=== PATIENT | male | born 1965 | race Caucasian/White ===

== ENCOUNTER → 2016-11-14 | Outpatient (CLI) | payer BC | LOC: MW.CHPM 08:12 | PROVIDERS: ATTEND Anesthesiology | DX: Z51.81 Encounter for therapeutic drug level monitoring (principal); Z79.891 Long term (current) use of opiate analgesic | CPT/HCPCS: 80305 ==

== ENCOUNTER → 2016-11-28 | Outpatient (CLI) | payer BC ==
--- NOTE | 2016-11-28 13:39 | CR ---
EXAMINATION: Lumbar spine HISTORY: Low back pain COMPARISON: Radiographs dated 09/05/2016 TECHNIQUE: 2 views FINDINGS: There is stable posterior fusion of L4-S1 bilaterally. Mild interbody osseous fusion noted . Marginal osteophytes are noted. No fracture or acute osseous abnormality. The SI joints are symmet deanna. IMPRESSION: Posterior effusion hardware noted from L4 to S1, grossly unchanged.
== END ==
LOC: MW.DI 09:09
PROVIDERS: ATTEND Neurological Surgery
DX: M54.5 Low back pain (principal); G03.8 Meningitis due to other specified causes
CPT/HCPCS: 72100; 72100-26

== ENCOUNTER → 2017-01-23 | Outpatient (CLI) | payer BC | LOC: MW.CHPM 07:59 | PROVIDERS: ATTEND Anesthesiology | DX: Z51.81 Encounter for therapeutic drug level monitoring (principal); Z79.891 Long term (current) use of opiate analgesic | CPT/HCPCS: 80305 ==

== ENCOUNTER 2017-03-14 10:38 | Day surgery (SDC) | payer BC ==
[~2017-03-14 10:38] MED LIST: Lactated Ringers 1,000 ML IV SCH; Lidocaine 2% 5 ML SDV ONE; Propofol 200 MG/20 ML SDV ONE; Sodium Chloride 0.9% 10 ML Syringe FLUSH PRN; Sodium Chloride 0.9% 2.5 ML Syringe FLUSH PRN
--- NOTE | 2017-03-14 11:43 | PCM.PREANE ---
Preanesthetic Assessment - Anesthesia/Transfusion/Family Hx Anesthesia History: Prior Anesthesia Without Reaction Family History of Anesthesia Reaction: No Transfusion History: No Prior Transfusion(s) - Review of Systems General: No Symptoms Pulmonary: No Symptoms Cardiovascular: No Symptoms Gastrointestinal: No symptoms Neurological: No Symptoms Other: Reports: None - Physical Assessment NPO Status Date: 03/13/17 O2 Sat by Pulse Oximetry: 97 Respiratory Rate: 16 Vital Signs: Last Vital Signs Temp 36.4 C 03/14/17 10:47 Pulse 93 03/14/17 10:47 Resp 16 03/14/17 10:47 BP 109/71 03/14/17 10:47 Pulse Ox 97 03/14/17 10:47 Height: 1.73 m Weight: 109.769 kg ASA Class: 2 Mental Status: Alert & Oriented x3 Airway Class: Mallampati = 1 Dentition: Reports: Normal Dentition ROM/Head Extension: Full Lungs: Clear to auscultation, Normal respiratory effort Cardiovascular: Regular Rate, Regular Rhythm - Allergies Allergies/Adverse Reactions: Allergies Allergy/AdvReac Type Severity Reaction Status Date / Time gabapentin Allergy Headache Verified 03/09/17 09:56 Penicillins Allergy Cannot Verified 03/09/17 09:56 Remember - Anesthesia Plan Pre-Op Medication Ordered: None - Acknowledgements Anesthesia Type Planned: MAC Pt an Appropriate Candidate for the Planned Anesthesia: Yes Alternatives and Risks of Anesthesia Discussed w Pt/Guardian: Yes Pt/Guardian Understands and Agrees with Anesthesia Plan: Yes PreAnesthesia Questionnaire Cardiovascular History: Reports: High Cholesterol, Hypertension Gastrointestinal History: Reports: None Musculoskeletal History: Reports: Arthritis, Fracture, Gout Endocrine/Metabolic History: Reports: Diabetes, Type II, Hypothyroidism, Obesity /BMI 30+ - Past Surgical History Head Surgeries/Procedures: Reports: None GI Surgical History: Reports: Hernia, Inguinal Musculoskeletal Surgical History: Reports: Other (See Below) Other Musculoskeletal Surgeries/Procedures:: hx repair of fx ankle and later had hardware removal - SUBSTANCE USE Smoking Status *Q: Never Smoker Recreational Drug Use History: No - HOME MEDS Home Medications: Home Meds Dexamethasone 3 tab PO ASDIRECTED PRN 03/09/17 [History] Levothyroxine Sodium [Synthroid] 125 mcg PO DAILY 03/09/17 [History] Sildenafil [Revatio] 20 mg PO ASDIRECTED PRN 03/09/17 [History] metFORMIN HCl [Metformin HCl] 1,000 mg PO DAILY 03/09/17 [History] oxyCODONE HCl/Acetaminophen [Percocet 10-325 mg Tablet] 1 tab PO ASDIRECTED PRN 03/09/17 [History] Lisinopril 5 mg PO DAILY 03/14/17 [History] Rosuvastatin [Crestor] 10 mg PO DAILY 03/14/17 [History] clomiPHENE Citrate [Serophene] 50 mg PO DAILY 03/14/17 [History] - CURRENT (IN HOUSE) MEDS Current Meds: Current Medications Lactated Ringer's (Ringers, Lactated) 1,000 mls @ 125 mls/hr IV ASDIRECTED HANK Last Admin: 03/14/17 11:05 Dose: 125 mls/hr Sodium Chloride (Saline Flush) 10 ml FLUSH ASDIRECTED PRN PRN Reason: Keep Vein Open Sodium Chloride (Saline Flush) 2.5 ml FLUSH ASDIRECTED PRN PRN Reason: Keep Vein Open Discontinued Medications Lidocaine (Xylocaine-Mpf 2%) Confirm Administered Dose 5 ml .ROUTE .STK-MED ONE Stop: 03/14/17 08:01 Propofol (Diprivan 20 Ml) Confirm Administered Dose 400 mg .ROUTE .STK-MED ONE Stop: 03/14/17 08:01
--- NOTE | 2017-03-14 13:43 | PCM.OPNOTE ---
- General Post-Op/Procedure Note Date of Surgery/Procedure: 03/14/17 Operative Procedure(s): Colonoscopy Findings: Normal colonoscopy Pre Op Diagnosis: Screening colonoscopy Post-Op Diagnosis: same Anesthesia Technique: MAC Primary Surgeon: Jenn Godinez Condition: Good
[2017-03-14 14:10] VITALS: BP 128/78
--- NOTE | 2017-03-14 14:23 | PCM.POSTAN ---
POST ANESTHESIA ASSESSMENT - MENTAL STATUS Mental Status: alert, oriented - RESPIRATORY Respiratory Status: respiratory rate WNL, airway patent, O2 saturation stable - CARDIOVASCULAR CV Status: pulse rate WNL, blood pressure stable - GASTROINTESTINAL GI Status: no symptoms - POST OP HYDRATION Hydration Status: adequate & stable
--- NOTE | 2017-03-14 14:23 | PCM48HPAN ---
Post Anesthesia Note - EVALUATION WITHIN 48HRS OF ANESTHETIC Vital Signs in Normal Range: Yes Patient Participated in Evaluation: Yes Respiratory Function Stable: Yes Airway Patent: Yes Cardiovascular Function Stable: Yes Hydration Status Stable: Yes Pain Control Satisfactory: Yes Nausea and Vomiting Control Satisfactory: Yes Mental Status Recovered: Yes
--- NOTE | 2017-03-15 01:30 | OR ---
SURGEON: JAMES QUIROZ MD DATE OF PROCEDURE: 03/14/2017 PREOPERATIVE DIAGNOSIS: Screening colonoscopy. POSTOPERATIVE DIAGNOSIS: Screening colonoscopy. PROCEDURE PERFORMED: Screening colonoscopy. ANESTHESIA: MAC. INSTRUMENT USED: Olympus colonoscope. EXTENT OF EXAM: To the cecum. PREPARATION: Good. LIMITATIONS: None. INDICATION FOR EXAMINATION: The patient is a 52-year-old male, who presents for first time screening colonoscopy. We discussed the procedure, expected perioperative course, and risks including bleeding, infection, or possible damage to surrounding structures, including perforation. The patient verbalized understanding and wishes to proceed. PROCEDURE IN DETAIL: The patient was brought to the endoscopy suite and placed in left lateral decubitus position. A time-out was completed verifying the patient's name, age, date of , allergies, and procedure to be performed. Monitored anesthesia care was induced and continuous oxygen was provided via nasal cannula throughout the procedure. After adequate sedation was achieved, a digital rectal exam was performed. This exam was within normal limits. A well lubricated colonoscope was inserted into the rectum and advanced under direct visualization to the level of the cecum. The cecum was identified by both visual and anatomic landmarks. A photograph was taken of the cecal cap, but I was unable to retroflex the scope within the cecum. The scope was withdrawn while examining the color, texture, anatomy, and integrity of the mucosa from the cecum to the anal canal. This all appeared normal. The scope was then brought into the rectum and retroflexed to allow visualization of the anal canal opening. The patient had mild hemorrhoidal disease, but no other findings. The scope was then straightened out and removed from the patient. The cecum to anus time was 8 minutes. The patient tolerated the procedure well and was taken to the PACU in stable condition. ENDOSCOPIC DIAGNOSIS: Normal colonoscopy. RECOMMENDATIONS: Follow up in clinic in 10 years. NADIR / MAJO /[id number]
== END 2017-03-14 14:10 | disposition home or self-care (01) ==
LOC: MW.SDS 10:38
PROVIDERS: ATTEND Surgery
PROC: 0DJD8ZZ Inspection of Lower Intestinal Tract, Via Natural or Artificial Opening Endoscopic (ICD-10-PCS; principal; 2017-03-14)
DX: Z12.11 Encounter for screening for malignant neoplasm of colon (principal); K64.9 Unspecified hemorrhoids; E03.9 Hypothyroidism, unspecified; M10.9 Gout, unspecified; M51.36 Other intervertebral disc degeneration, lumbar region; N52.9 Male erectile dysfunction, unspecified; M96.1 Postlaminectomy syndrome, not elsewhere classified; E78.00 Pure hypercholesterolemia, unspecified; E29.1 Testicular hypofunction; M79.1 Myalgia; E66.9 Obesity, unspecified; I10 Essential (primary) hypertension; M19.90 Unspecified osteoarthritis, unspecified site; E11.9 Type 2 diabetes mellitus without complications; G89.4 Chronic pain syndrome; M47.814 Spondylosis without myelopathy or radiculopathy, thoracic region; Z88.0 Allergy status to penicillin; Z88.8 Allergy status to other drugs, medicaments and biological substances; Z79.891 Long term (current) use of opiate analgesic; Z79.84 Long term (current) use of oral hypoglycemic drugs; Z79.899 Other long term (current) drug therapy; Z98.890 Other specified postprocedural states; Z68.36 Body mass index [BMI] 36.0-36.9, adult
CPT/HCPCS: 45378; J7120; J2704

== ENCOUNTER 2017-10-29 08:03 | Observation (INO) | payer BC ==
[2017-10-29] MEDS ORDERED: Ondansetron 4 MG/2 ML SDV IVPUSH ONE (08:24)
[2017-10-29] MEDS ORDERED: Sodium Chloride 0.9% 10 ML Syringe FLUSH PRN (08:24)
[2017-10-29] MEDS ORDERED: Sodium Chloride 0.9% 2.5 ML Syringe FLUSH PRN (08:24)
--- NOTE | 2017-10-29 08:28 | EDM.PDOC ---
ED HPI GENERAL MEDICAL PROBLEM - General Chief Complaint: Gastrointestinal Problem Stated Complaint: vomitting Time Seen by Provider: 10/29/17 08:15 Source of Information: Reports: Patient History Limitations: Reports: No Limitations - History of Present Illness INITIAL COMMENTS - FREE TEXT/NARRATIVE: History of present illness: []Patient started having nonbloody diarrhea 3 days ago followed by vomiting and last night at 10:00 had abdominal pain. Denies any fevers or chills. He last ate at 9 PM and had ice cream. Review of systems: As per history of present illness and below otherwise all systems reviewed and negative. Past medical history: As per history of present illness and as reviewed below otherwise noncontributory. Surgical history: As per history of present illness and as reviewed below otherwise noncontributory. Social history: No reported history of drug or alcohol abuse. Family history: As per history of present illness and as reviewed below otherwise noncontributory. Physical exam: General: Well developed, well nourished in painful distress HEENT: Atraumatic, normocephalic, pupils reactive, negative for conjunctival pallor or scleral icterus, mucous membranes moist, throat clear, neck supple, nontender, trachea midline. Lungs: Clear to auscultation, breath sounds equal bilaterally, chest nontender. Heart: S1S2, regular, negative for clicks, rubs, or JVD. Abdomen: Soft, nondistended, diffuse tenderness with maximum tenderness is right lower quadrant with voluntary guarding and no rebound. Negative for masses or hepatosplenomegaly. Negative for costovertebral tenderness. Pelvis: Stable nontender. Genitourinary: Deferred. Rectal: Deferred. Extremities: Atraumatic, negative for cords or calf pain. Neurovascular unremarkable. Neuro: Awake, alert, oriented. Cranial nerves II through XII unremarkable. Cerebellum unremarkable. Motor and sensory unremarkable throughout. Exam nonfocal. Diagnostics: []Labs elevated white count with a shift, CT showing acute appendicitis without rupture Therapeutics: []IV fluids Dilaudid and Zofran given Impression: []Acute appendicitis Plan: []Admit Definitive disposition and diagnosis as appropriate pending reevaluation and review of above. right lower and upper quadrant Pain Score (Numeric/FACES): 10 - Related Data Allergies Allergy/AdvReac Type Severity Reaction Status Date / Time gabapentin Allergy Headache Verified 10/29/17 08:11 Penicillins Allergy Cannot Verified 10/29/17 08:11 Remember Home Meds: Home Meds Dexamethasone 3 tab PO ASDIRECTED PRN 03/09/17 [History] Levothyroxine Sodium [Synthroid] 125 mcg PO DAILY 03/09/17 [History] Sildenafil [Revatio] 20 mg PO ASDIRECTED PRN 03/09/17 [History] metFORMIN HCl [Metformin HCl] 1,000 mg PO DAILY 03/09/17 [History] Lisinopril 5 mg PO DAILY 03/14/17 [History] Rosuvastatin [Crestor] 10 mg PO DAILY 03/14/17 [History] clomiPHENE Citrate [Serophene] 50 mg PO DAILY 03/14/17 [History] Past Medical History HEENT History: Reports: None Cardiovascular History: Reports: High Cholesterol, Hypertension Respiratory History: Reports: None Gastrointestinal History: Reports: None Genitourinary History: Reports: None Musculoskeletal History: Reports: Arthritis, Fracture, Gout Neurological History: Reports: None Psychiatric History: Reports: None Endocrine/Metabolic History: Reports: Diabetes, Type II, Hypothyroidism, Obesity /BMI 30+ Hematologic History: Reports: None Immunologic History: Reports: None Oncologic (Cancer) History: Reports: None Dermatologic History: Reports: None - Past Surgical History Head Surgeries/Procedures: Reports: None HEENT Surgical History: Reports: None Cardiovascular Surgical History: Reports: None Respiratory Surgical History: Reports: None GI Surgical History: Reports: Hernia, Inguinal Male Surgical History: Reports: None Endocrine Surgical History: Reports: None Neurological Surgical History: Reports: None Musculoskeletal Surgical History: Reports: Other (See Below) Other Musculoskeletal Surgeries/Procedures:: hx repair of fx ankle and later had hardware removal Oncologic Surgical History: Reports: None Dermatological Surgical History: Reports: None Social & Family History - Family History Family Medical History: Noncontributory - Tobacco Use Smoking Status *Q: Never Smoker Second Hand Smoke Exposure: No - Caffeine Use Caffeine Use: Reports: None - Recreational Drug Use Recreational Drug Use: No ED ROS GENERAL - Review of Systems Review Of Systems: See Below (See history of present illness) ED EXAM, GI/ABD - Physical Exam Exam: See Below (See history of present illness) Course - Vital Signs Last Recorded V/S: Last Vital Signs Temp 96.6 F 10/29/17 08:12 Pulse 82 10/29/17 10:15 Resp 16 02/12/18 10:15 BP 137/77 10/29/17 10:15 Pulse Ox 97 10/29/17 10:15 - Orders/Labs/Meds Orders: Active Orders 24 hr Category Date Time Status NPO [Nothing Per Oral Diet] [DIET] Diet 10/29/17 Lunch Active UA W/MICROSCOPIC [URIN] Stat Lab 10/29/17 10:33 Ordered HYDROmorphone [Dilaudid] Med 10/29/17 08:24 Active 0.5 mg IVPUSH Q1H PRN Sodium Chloride 0.9% [Saline Flush] Med 10/29/17 08:24 Active 10 ml FLUSH ASDIRECTED PRN Sodium Chloride 0.9% [Saline Flush] Med 10/29/17 08:24 Active 2.5 ml FLUSH ASDIRECTED PRN Saline Lock Insert [OM.PC] Stat Oth 10/29/17 08:24 Ordered Medication Orders Hydromorphone HCl (Dilaudid) 0.5 mg IVPUSH Q1H PRN PRN Reason: Pain Last Admin: 10/29/17 08:55 Dose: 0.5 mg Admin: 10/29/17 08:34 Dose: 0.5 mg Sodium Chloride (Saline Flush) 10 ml FLUSH ASDIRECTED PRN PRN Reason: Keep Vein Open Last Admin: 10/29/17 08:35 Dose: 10 ml Sodium Chloride (Saline Flush) 2.5 ml FLUSH ASDIRECTED PRN PRN Reason: Keep Vein Open Last Admin: 10/29/17 08:35 Dose: 2.5 ml Labs: Laboratory Tests 10/29/17 10/29/17 Range/Units 08:22 08:22 WBC 15.39 H (4.0-11.0) K/uL RBC 5.19 (4.50-5.90) M/uL Hgb 15.2 (13.0-17.0) g/dL Hct 44.9 (38.0-50.0) % MCV 86.5 (80.0-98.0) fL MCH 29.3 (27.0-32.0) pg MCHC 33.9 (31.0-37.0) g/dL RDW Std Deviation 43.7 (28.0-62.0) fl RDW Coeff of Pina 14 (11.0-15.0) % Plt Count 228 (150-400) K/uL MPV 10.10 (7.40-12.00) fL Neut % (Auto) 81.2 H (48.0-80.0) % Lymph % (Auto) 10.6 L (16.0-40.0) % [place] % (Auto) 7.3 (0.0-15.0) % Eos % (Auto) 0.8 (0.0-7.0) % Baso % (Auto) 0.1 (0.0-1.5) % Neut # (Auto) 12.5 H (1.4-5.7) K/uL Lymph # (Auto) 1.6 (0.6-2.4) K/uL [place] # (Auto) 1.1 H (0.0-0.8) K/uL Eos # (Auto) 0.1 (0.0-0.7) K/uL Baso # (Auto) 0.0 (0.0-0.1) K/uL Nucleated RBC % 0.0 /100WBC Nucleated RBCs # 0 K/uL Sodium 139 (136-146) mmol/L Potassium 4.2 (3.5-5.1) mmol/L Chloride 106 (98-110) mmol/L Carbon Dioxide 19 L (21-31) mmol/L BUN 17 (6.0-23.0) mg/dL Creatinine 1.0 (0.6-1.5) mg/dL Est Cr Clr Drug Dosing 84.55 mL/min Estimated GFR (MDRD) > 60.0 ml/min Glucose 128 H (60-110) mg/dL Calcium 9.6 (8.8-10.8) mg/dL Total Bilirubin 0.7 (0.1-1.5) mg/dL AST 26 (5-40) IU/L ALT 39 (8-54) IU/L Alkaline Phosphatase 84 (40-150) Total Protein 7.4 (6.0-8.0) g/dL Albumin 4.5 (3.5-5.0) g/dL Globulin 2.9 (2.0-3.5) g/dL Albumin/Globulin Ratio 1.6 (1.3-2.8) Lipase 24 (7-80) U/L Meds: Medications Generic Name Dose Route Start Last Admin Trade Name Christianoq PRN Reason Stop Dose Admin Hydromorphone HCl 0.5 mg 10/29/17 08:24 10/29/17 08:55 Dilaudid IVPUSH 0.5 mg Q1H PRN Administration Pain Sodium Chloride 10 ml 10/29/17 08:24 10/29/17 08:35 Saline Flush FLUSH 10 ml ASDIRECTED PRN Administration Keep Vein Open Sodium Chloride 2.5 ml 10/29/17 08:24 10/29/17 08:35 Saline Flush FLUSH 2.5 ml ASDIRECTED PRN Administration Keep Vein Open Discontinued Medications Generic Name Dose Route Start Last Admin Trade Name Christianoq PRN Reason Stop Dose Admin Iopamidol 100 ml 10/29/17 09:49 10/29/17 10:01 Isovue Multipack-370 (76%) IVPUSH 10/29/17 09:50 100 ml ONETIME STA Administration Ondansetron HCl 4 mg 10/29/17 08:24 10/29/17 08:34 Zofran IVPUSH 10/29/17 08:25 4 mg ONETIME ONE Administration Departure - Departure Time of Disposition: 10:48 Disposition: Admitted As Inpatient 67 Condition: Good Clinical Impression: Acute appendicitis Qualifiers: Acute appendicitis type: unspecified acute appendicitis type Qualified Code(s) : K35.80 - Unspecified acute appendicitis - Discharge Information Referrals: Phoenix Wong MD [Primary Care Provider] - Forms: ED Department Discharge - My Orders Last 24 Hours: My Active Orders 10/29/17 08:24 HYDROmorphone [Dilaudid] 0.5 mg IVPUSH Q1H PRN Sodium Chloride 0.9% [Saline Flush] 10 ml FLUSH ASDIRECTED PRN Sodium Chloride 0.9% [Saline Flush] 2.5 ml FLUSH ASDIRECTED PRN Saline Lock Insert [OM.PC] Stat 10/29/17 10:33 UA W/MICROSCOPIC [URIN] Stat 10/29/17 Lunch NPO [Nothing Per Oral Diet] [DIET] - Assessment/Plan Last 24 Hours: My Active Orders 10/29/17 08:24 HYDROmorphone [Dilaudid] 0.5 mg IVPUSH Q1H PRN Sodium Chloride 0.9% [Saline Flush] 10 ml FLUSH ASDIRECTED PRN Sodium Chloride 0.9% [Saline Flush] 2.5 ml FLUSH ASDIRECTED PRN Saline Lock Insert [OM.PC] Stat 10/29/17 10:33 UA W/MICROSCOPIC [URIN] Stat 10/29/17 Lunch NPO [Nothing Per Oral Diet] [DIET]
[2017-10-29] MEDS: HYDROmorphone 1 MG/ML Syringe IVPUSH PRN ×3 (08:34→11:06)
[2017-10-29 09:22] LABS: CHLORIDE,CL 106 mmol/L (98-110); SODIUM,NA 139 mmol/L (136-146)
[2017-10-29] MEDS ORDERED: Iopamidol 755 MG/ML 500 ML Multipack Bottle IVPUSH STA (09:49)
--- NOTE | 2017-10-29 10:18 | CT ---
CT of the abdomen and pelvis with contrast. HISTORY: Pain TECHNIQUE: Axial CT images were obtained of the abdomen and pelvis following administration of 100 mL of Isovue-370 in the right arm without complication. Coronal and sagittal reconstructions obtained. FINDINGS: The lung bases are clear, no pleural effusion. Mild dependent atelectasis. Liver, spleen, adrenal gla nds, and pancreas appear normal. The gallbladder is normal. No bulky retroperitoneal lymphadenopathy or abdominal ascites. The kidneys enhance and function symmetrically without evidence of obstructive uropathy. The large and small bowel are normal in caliber without evidence of obstruction. The appendix is retr ocecal and enlarged with adjacent stranding. No periappendiceal fluid or free air. The urinary bladde r is normal. No bulky pelvic lymphadenopathy or significant free pelvic fluid. Small fat-containing u mbilical hernia is noted. Postsurgical changes noted within the lower lumbar spine no suspicious osseous abnormalities. IMPRESSION: 1. Acute appendicitis without evidence of a rupture.
[2017-10-29] MEDS ORDERED: cefOXitin 1 GM in Premix Bag 1 BAG IV ONE (10:44)
--- NOTE | 2017-10-29 11:00 | PCM.PREANE ---
Preanesthetic Assessment - Anesthesia/Transfusion/Family Hx Anesthesia History: Prior Anesthesia Without Reaction Transfusion History: No Prior Transfusion(s) - Review of Systems General: No Symptoms Pulmonary: No Symptoms Cardiovascular: No Symptoms Gastrointestinal: No Symptoms Neurological: No Symptoms Other: Reports: None - Physical Assessment NPO Status Date: 10/28/17 NPO Status Time: 21:00 O2 Sat by Pulse Oximetry: 97 Respiratory Rate: 16 Vital Signs: Last Vital Signs Temp 96.6 F 10/29/17 08:12 Pulse 82 10/29/17 10:15 Resp 16 10/29/17 10:15 BP 137/77 10/29/17 10:15 Pulse Ox 97 10/29/17 10:15 Height: 5 ft 8 in Weight: 101.2 kg ASA Class: 2E Mental Status: Alert & Oriented x3 Airway Class: Mallampati = 2 Dentition: Reports: Normal Dentition Thyro-Mental Finger Breadths: 3 Mouth Opening Finger Breadths: 3 ROM/Head Extension: Limited/Partial Lungs: Clear to Auscultation, Normal Respiratory Effort Cardiovascular: Regular Rate, Regular Rhythm - Lab Values: Laboratory Last Values WBC 15.39 K/uL (4.0-11.0) H 10/29/17 08:22 RBC 5.19 M/uL (4.50-5.90) 10/29/17 08:22 Hgb 15.2 g/dL (13.0-17.0) 10/29/17 08:22 Hct 44.9 % (38.0-50.0) 10/29/17 08:22 MCV 86.5 fL (80.0-98.0) 10/29/17 08:22 MCH 29.3 pg (27.0-32.0) 10/29/17 08:22 MCHC 33.9 g/dL (31.0-37.0) 10/29/17 08:22 RDW Std Deviation 43.7 fl (28.0-62.0) 10/29/17 08:22 RDW Coeff of Pina 14 % (11.0-15.0) 10/29/17 08:22 Plt Count 228 K/uL (150-400) 10/29/17 08:22 MPV 10.10 fL (7.40-12.00) 10/29/17 08:22 Neut % (Auto) 81.2 % (48.0-80.0) H 10/29/17 08: Lymph % (Auto) 10.6 % (16.0-40.0) L 10/29/17 08: [place] % (Auto) 7.3 % (0.0-15.0) 10/29/17 08: Eos % (Auto) 0.8 % (0.0-7.0) 10/29/17 08: Baso % (Auto) 0.1 % (0.0-1.5) 10/29/17 08: Neut # (Auto) 12.5 K/uL (1.4-5.7) H 10/29/17 08: Lymph # (Auto) 1.6 K/uL (0.6-2.4) 10/29/17 08: [place] # (Auto) 1.1 K/uL (0.0-0.8) H 10/29/17 08: Eos # (Auto) 0.1 K/uL (0.0-0.7) 10/29/17 08: Baso # (Auto) 0.0 K/uL (0.0-0.1) 10/29/17 08: Nucleated RBC % 0.0 /100WBC 10/29/17: Nucleated RBCs # 0 K/uL 10/29/17 08: Sodium 139 mmol/L (136-146) 10/29/17 08: Potassium 4.2 mmol/L (3.5-5.1) 10/29/17 08: Chloride 106 mmol/L (98-110) 10/29/17 08: Carbon Dioxide 19 mmol/L (21-31) L 10/29/17 08: BUN 17 mg/dL (6.0-23.0) 10/29/17 08: Creatinine 1.0 mg/dL (0.6-1.5) 10/29/17 08: Est Cr Clr Drug Dosing 84.55 mL/min 10/29/17 08:22 Estimated GFR (MDRD) > 60.0 ml/min 10/29/17 08:22 Glucose 128 mg/dL (60-110) H 10/29/17 08:22 Calcium 9.6 mg/dL (8.8-10.8) 10/29/17 08:22 Total Bilirubin 0.7 mg/dL (0.1-1.5) 10/29/17 08:22 AST 26 IU/L (5-40) 10/29/17 08:22 ALT 39 IU/L (8-54) 10/29/17 08:22 Alkaline Phosphatase 84 (40-150) 10/29/17 08:22 Total Protein 7.4 g/dL (6.0-8.0) 10/29/17 08:22 Albumin 4.5 g/dL (3.5-5.0) 10/29/17 08:22 Globulin 2.9 g/dL (2.0-3.5) 10/29/17 08:22 Albumin/Globulin Ratio 1.6 (1.3-2.8) 10/29/17 08:22 Lipase 24 U/L (7-80) 10/29/17 08:22 - Allergies Allergies/Adverse Reactions: Allergies Allergy/AdvReac Type Severity Reaction Status Date / Time gabapentin Allergy Headache Verified 10/29/17 08:11 Penicillins Allergy Cannot Verified 10/29/17 08:11 Remember - Anesthesia Plan Free Text/Narrative:: Chronic back pain. Dexamethasone taken at home PRN Gout, he states he only takes this a handful of times a year. EKG pending - Acknowledgements Anesthesia Type Planned: General Anesthesia Pt an Appropriate Candidate for the Planned Anesthesia: Yes Alternatives and Risks of Anesthesia Discussed w Pt/Guardian: Yes Pt/Guardian Understands and Agrees with Anesthesia Plan: Yes PreAnesthesia Questionnaire HEENT History: Reports: None Cardiovascular History: Reports: High Cholesterol, Hypertension Respiratory History: Reports: Other (See Below) (Previous smoker) Gastrointestinal History: Reports: None Genitourinary History: Reports: None Musculoskeletal History: Reports: Arthritis, Fracture, Gout Neurological History: Reports: None Psychiatric History: Reports: None Endocrine/Metabolic History: Reports: Diabetes, Type II, Hypothyroidism, Obesity /BMI 30+ Hematologic History: Reports: None Immunologic History: Reports: None Oncologic (Cancer) History: Reports: None Dermatologic History: Reports: None - Infectious Disease History Infectious Disease History: Reports: None - Past Surgical History Head Surgeries/Procedures: Reports: None HEENT Surgical History: Reports: None Cardiovascular Surgical History: Reports: None Respiratory Surgical History: Reports: None GI Surgical History: Reports: Hernia, Inguinal Male Surgical History: Reports: None Endocrine Surgical History: Reports: None Neurological Surgical History: Reports: None Musculoskeletal Surgical History: Reports: Other (See Below) Other Musculoskeletal Surgeries/Procedures:: hx repair of fx ankle and later had hardware removal Oncologic Surgical History: Reports: None Dermatological Surgical History: Reports: None - SUBSTANCE USE Smoking Status *Q: Never Smoker Second Hand Smoke Exposure: No Recreational Drug Use History: No - HOME MEDS Home Medications: Home Meds Dexamethasone 3 tab PO ASDIRECTED PRN 03/09/17 [History] Levothyroxine Sodium [Synthroid] 125 mcg PO DAILY 03/09/17 [History] Sildenafil [Revatio] 20 mg PO ASDIRECTED PRN 03/09/17 [History] metFORMIN HCl [Metformin HCl] 1,000 mg PO DAILY 03/09/17 [History] Lisinopril 5 mg PO DAILY 03/14/17 [History] Rosuvastatin [Crestor] 10 mg PO DAILY 03/14/17 [History] clomiPHENE Citrate [Serophene] 50 mg PO DAILY 03/14/17 [History] - CURRENT (IN HOUSE) MEDS Current Meds: Current Medications Hydromorphone HCl (Dilaudid) 0.5 mg IVPUSH Q1H PRN PRN Reason: Pain Last Admin: 10/29/17 08:55 Dose: 0.5 mg Cefoxitin Sodium 1 gm/ Premix 50 mls @ 100 mls/hr IV ONETIME ONE Stop: 10/29/17 11:13 Sodium Chloride (Saline Flush) 10 ml FLUSH ASDIRECTED PRN PRN Reason: Keep Vein Open Last Admin: 10/29/17 08:35 Dose: 10 ml Sodium Chloride (Saline Flush) 2.5 ml FLUSH ASDIRECTED PRN PRN Reason: Keep Vein Open Last Admin: 10/29/17 08:35 Dose: 2.5 ml Discontinued Medications Iopamidol (Isovue Multipack-370 (76%)) 100 ml IVPUSH ONETIME STA Stop: 10/29/17 09:50 Last Admin: 10/29/17 10:01 Dose: 100 ml Ondansetron HCl (Zofran) 4 mg IVPUSH ONETIME ONE Stop: 10/29/17 08:25 Last Admin: 10/29/17 08:34 Dose: 4 mg
[2017-10-29] MEDS ORDERED: Lactated Ringers 1,000 ML IV ONE (11:05)
[2017-10-29] MEDS ORDERED: Rocuronium 10 MG/ML 10 ML Syringe ONE (11:39)
[2017-10-29] MEDS ORDERED: Ondansetron 4 MG/2 ML SDV ONE (11:39)
[2017-10-29] MEDS ORDERED: diphenhydrAMINE 50 MG/ML SDV ONE (11:39)
[2017-10-29] MEDS ORDERED: Succinylcholine/Normal Saline 200 MG/10 ML Syringe ONE (11:39)
[2017-10-29] MEDS ORDERED: Midazolam 1 MG/ML 2 ML SDV ONE (11:40)
[2017-10-29] MEDS ORDERED: fentaNYL 250 MCG/5 ML SDV ONE (11:40)
[2017-10-29] MEDS ORDERED: Propofol 200 MG/20 ML SDV ONE (11:40)
[2017-10-29] MEDS ORDERED: Bupivacaine 0.5% 10 ML SDV ONE (11:41)
[2017-10-29] MEDS ORDERED: ceFAZolin 1 GM Vial ONE (11:44)
--- NOTE | 2017-10-29 12:12 | PCM.CONS ---
H&P History of Present Illness - General Date of Service: 10/29/17 Admit Problem/Dx: Patient is a 52-year-old gentleman with a 2 day history of abdominal pain and became significantly worse last night. This was associated with nausea and vomiting but no fever or chills. He does note pain on ambulation. Source of Information: Patient, Family History Limitations: Reports: No Limitations - History of Present Illness Symptom Onset Date: 10/27/17 Duration of Symptoms: Reports: Day(s): Location: Reports: Abdomen Quality: Reports: Ache, Pressure Severity: Moderate Improves with: Reports: Rest Worsens with: Reports: Movement Context: Reports: Sick Contact Associated Symptoms: Reports: No Other Symptoms right lower and upper quadrant Pain Score (Numeric/FACES): 10 - Related Data Allergies/Adverse Reactions: Allergies Allergy/AdvReac Type Severity Reaction Status Date / Time gabapentin Allergy Headache Verified 10/29/17 08:11 Penicillins Allergy Cannot Verified 10/29/17 08:11 Remember Home Medications: Home Meds Dexamethasone 3 tab PO ASDIRECTED PRN 03/09/17 [History] Levothyroxine Sodium [Synthroid] 125 mcg PO DAILY 03/09/17 [History] Sildenafil [Revatio] 20 mg PO ASDIRECTED PRN 03/09/17 [History] Lisinopril 5 mg PO DAILY 03/14/17 [History] Rosuvastatin [Crestor] 10 mg PO DAILY 03/14/17 [History] clomiPHENE Citrate [Serophene] 50 mg PO DAILY 03/14/17 [History] metFORMIN HCl [Metformin HCl ER] 1,000 mg PO DAILY 10/29/17 [History] Past Medical History HEENT History: Reports: None Cardiovascular History: Reports: High Cholesterol, Hypertension Respiratory History: Reports: Other (See Below) (Previous smoker) Gastrointestinal History: Reports: None Genitourinary History: Reports: None Musculoskeletal History: Reports: Arthritis, Fracture, Gout Neurological History: Reports: None Psychiatric History: Reports: None Endocrine/Metabolic History: Reports: Diabetes, Type II, Hypothyroidism, Obesity /BMI 30+ Hematologic History: Reports: None Immunologic History: Reports: None Oncologic (Cancer) History: Reports: None Dermatologic History: Reports: None - Infectious Disease History Infectious Disease History: Reports: None - Past Surgical History Head Surgeries/Procedures: Reports: None HEENT Surgical History: Reports: None, Oral Surgery Cardiovascular Surgical History: Reports: None Respiratory Surgical History: Reports: None GI Surgical History: Reports: Hernia, Inguinal Male Surgical History: Reports: None Endocrine Surgical History: Reports: None Neurological Surgical History: Reports: None Musculoskeletal Surgical History: Reports: Other (See Below) Other Musculoskeletal Surgeries/Procedures:: hx repair of fx ankle and later had hardware removal Oncologic Surgical History: Reports: None Dermatological Surgical History: Reports: None Social & Family History - Family History Family Medical History: Noncontributory - Tobacco Use Smoking Status *Q: Never Smoker Second Hand Smoke Exposure: No - Caffeine Use Caffeine Use: Reports: None - Recreational Drug Use Recreational Drug Use: No H&P Review of Systems - Review of Systems: Review Of Systems: See Below General: Reports: Fever, Decreased Appetite. Denies: Chills HEENT: Reports: No Symptoms Pulmonary: Denies: Shortness of Breath, Wheezing Cardiovascular: Denies: Chest Pain Gastrointestinal: Reports: Abdominal Pain, Decreased Appetite, Flatus, Nausea, Vomiting. Denies: Constipation, Diarrhea, Distension Genitourinary: Reports: No Symptoms Musculoskeletal: Reports: No Symptoms Skin: Reports: No Symptoms Psychiatric: Reports: No Symptoms Neurological: Reports: No Symptoms Hematologic/Lymphatic: Reports: No Symptoms Immunologic: Reports: No Symptoms Exam - Exam Exam: See Below - Vital Signs Vital Signs: Last Vital Signs Temp 99.2 F 10/29/17 11:11 Pulse 75 10/29/17 11:11 Resp 14 10/29/17 11:11 BP 133/76 10/29/17 11:11 Pulse Ox 95 10/29/17 11:11 Weight: 223 lb 1.725 oz - Exam General: Alert, Oriented, Cooperative, Mild Distress HEENT: Conjunctiva Clear, Pupils Equal, Pupils Reactive. No: Scleral Icterus Neck: Supple Lungs: Clear to Auscultation, Normal Respiratory Effort Cardiovascular: Regular Rate, Regular Rhythm, Normal S1, Normal S2. No: Tachycardia GI/Abdominal Exam: Normal Bowel Sounds, Soft, Rebound, Tender (RLQ). No: Distended, Guarding, Rigid (Male) Exam: No Hernia Rectal (Males) Exam: Deferred Back Exam: Normal Inspection Extremities: Normal Inspection, Normal Range of Motion Peripheral Pulses: 4+: Posterior Tibial (L), Posterior Tibial (R), Dorsalis Pedis (L), Dorsalis Pedis (R) Skin: Warm, Dry, Intact Neurological: Cranial Nerves Intact Neuro Extensive - Mental Status: Alert, Oriented x3, Normal Mood/Affect, Normal Cognition Psychiatric: Alert, Normal Affect, Normal Mood - Patient Data Lab Results Last 24 hrs: Laboratory Results - last 24 hr 10/29/17 10/29/17 10/29/17 Range/Units 08:22 08:22 10:50 WBC 15.39 H (4.0-11.0) K/uL RBC 5.19 (4.50-5.90) M/uL Hgb 15.2 (13.0-17.0) g/dL Hct 44.9 (38.0-50.0) % MCV 86.5 (80.0-98.0) fL MCH 29.3 (27.0-32.0) pg MCHC 33.9 (31.0-37.0) g/dL RDW Std Deviation 43.7 (28.0-62.0) fl RDW Coeff of [place] 14 (11.0-15.0) % Plt Count 228 (150-400) K/uL MPV 10.10 (7.40-12.00) fL Neut % (Auto) 81.2 H (48.0-80.0) % Lymph % (Auto) 10.6 L (16.0-40.0) % [place] % (Auto) 7.3 (0.0-15.0) % Eos % (Auto) 0.8 (0.0-7.0) % Baso % (Auto) 0.1 (0.0-1.5) % Neut # (Auto) 12.5 H (1.4-5.7) K/uL Lymph # (Auto) 1.6 (0.6-2.4) K/uL [place] # (Auto) 1.1 H (0.0-0.8) K/uL Eos # (Auto) 0.1 (0.0-0.7) K/uL Baso # (Auto) 0.0 (0.0-0.1) K/uL Nucleated RBC % 0.0 /100WBC Nucleated RBCs # 0 K/uL Sodium 139 (136-146) mmol/L Potassium 4.2 (3.5-5.1) mmol/L Chloride 106 (98-110) mmol/L Carbon Dioxide 19 L (21-31) mmol/L BUN 17 (6.0-23.0) mg/dL Creatinine 1.0 (0.6-1.5) mg/dL Est Cr Clr Drug Dosing 84.55 mL/min Estimated GFR (MDRD) > 60.0 ml/min Glucose 128 H (60-110) mg/dL Calcium 9.6 (8.8-10.8) mg/dL Total Bilirubin 0.7 (0.1-1.5) mg/dL AST 26 (5-40) IU/L ALT 39 (8-54) IU/L Alkaline Phosphatase 84 (40-150) Total Protein 7.4 (6.0-8.0) g/dL Albumin 4.5 (3.5-5.0) g/dL Globulin 2.9 (2.0-3.5) g/dL Albumin/Globulin Ratio 1.6 (1.3-2.8) Lipase 24 (7-80) U/L Urine Color YELLOW Urine Appearance CLEAR Urine pH 8.0 (5.0-8.0) Ur Specific [place] 1.015 (1.001-1.035) Urine Protein NEGATIVE (NEGATIVE) mg/dL Urine Glucose (UA) NEGATIVE (NEGATIVE) mg/dL Urine Ketones TRACE H (NEGATIVE) mg/dL Urine Occult Blood NEGATIVE (NEGATIVE) Urine Nitrite NEGATIVE (NEGATIVE) Urine Bilirubin NEGATIVE (NEGATIVE) Urine Urobilinogen 0.2 (<2.0) EU/dL Ur Leukocyte Esterase NEGATIVE (NEGATIVE) Urine RBC NONE SEEN (0-2/HPF) Urine WBC 0-1 (0-5/HPF) Ur Epithelial Cells RARE (NONE-FEW) Urine Bacteria RARE (NEGATIVE) Result Diagrams: 10/29/17 08:22 10/29/17 08:22 Consult PN Assessment/Plan Procedures: Procedures ASSAY OF BLOOD/URIC ACID (05/30/17) ASSAY OF FREE TESTOSTERONE (05/30/17) ASSAY OF TOTAL TESTOSTERONE (05/30/17) ASSAY THYROID STIM HORMONE (03/05/17) CHEST X-RAY 2VW FRONTAL&LATL (07/25/16) COMPLETE CBC AUTOMATED (07/25/16) COMPREHEN METABOLIC PANEL (03/05/17) DESTROY L/S FACET JNT ADDL (07/07/14) DESTROY LUMB/SAC FACET JNT (07/07/14) DIAGNOSTIC COLONOSCOPY (03/14/17) DRUG TEST PRSMV DIR OPT OBS (01/23/17) ELECTROCARDIOGRAM TRACING (07/25/16) FLUOROGUIDE FOR SPINE INJECT (09/08/14) GLYCOSYLATED HEMOGLOBIN TEST (05/30/17) INJECT SPINE LUMBAR/SACRAL (09/08/14) LIPID PANEL (05/30/17) MANUAL THERAPY 1/> REGIONS (01/07/15) METABOLIC PANEL TOTAL CA (05/30/17) MRI LUMBAR SPINE W/O & W/DYE (11/30/15) MRI LUMBAR SPINE W/O DYE (08/27/14) PT EVALUATION (12/15/14) ROUTINE VENIPUNCTURE (03/05/17) THERAPEUTIC EXERCISES (01/07/15) VIT D 1 25-DIHYDROXY (07/25/16) X-RAY BEND ONLY L-S SPINE (11/30/15) X-RAY EXAM L-S SPINE 2/3 VWS (04/30/17) (1) Acute appendicitis SNOMED Code(s): 30112396 Code(s): K35.80 - UNSPECIFIED ACUTE APPENDICITIS Current Visit: Yes Qualifiers: Acute appendicitis type: unspecified acute appendicitis type Qualified Code (s): K35.80 - Unspecified acute appendicitis Problem List Initiated/Reviewed/Updated: Yes Plan: Laparoscopic appendectomy, possible open appendectomy. Both operative procedures, along with the risks, including, but not limited to, bleeding, infection, pneumonia, deep venous thrombosis, pulmonary emboli, myocardial infarction, and adjacent organ injury have been reviewed with the patient who voices understanding, offers no questions and agrees to proceed.
[2017-10-29] MEDS ORDERED: Lactated Ringers 1,000 ML IV SCH ×3 (12:15→16:30)
[2017-10-29] MEDS ORDERED: Neostigmine Methylsulfate 1 MG/ML 5 ML Syringe ONE (13:25)
[2017-10-29] MEDS ORDERED: Glycopyrrolate 0.2 MG/ML SDV ONE ×2 (13:25)
[2017-10-29] MEDS ORDERED: Ketorolac 30 MG/ML SDV ONE (13:26)
--- NOTE | 2017-10-29 14:05 | PCM.OPNOTE ---
- General Post-Op/Procedure Note Date of Surgery/Procedure: 10/29/17 Operative Procedure(s): Laparoscopic appendectomy Pre Op Diagnosis: Acute abdomen Post-Op Diagnosis: Acute retrocecal appendicitis Anesthesia Technique: General ET Tube (ASA IIE) Primary Surgeon: Carlin Bashir Fluid Replacement, Intraop: 2,000 Output, Urine Amount: 200 EBL in mLs: 10 Condition: Stable Free Text/Narrative:: Dictation [id number] CPT CODE 10221
[2017-10-29] MEDS ORDERED: cefOXitin 1 GM in Premix Bag 1 BAG IV SCH (14:15)
--- NOTE | 2017-10-29 14:28 | OR ---
SURGEON: Carlin Bashir M.D. DATE OF PROCEDURE: 10/29/2017 OPERATION PERFORMED: Laparoscopic appendectomy. ANESTHESIA: General endotracheal. ASA CLASSIFICATION: IIE. PREOPERATIVE DIAGNOSIS: Acute appendicitis. POSTOPERATIVE DIAGNOSIS: Acute retrocecal appendicitis without rupture. INTRAOPERATIVE BLOOD LOSS: 10 mL. INTRAOPERATIVE FLUID REPLACEMENT: 2000 mL of crystalloid. DESCRIPTION OF PROCEDURE: The patient was taken to the operating room and placed on the operating table in the supine position. Time-out was called for appropriate identification of the patient and procedure. Thigh-high TEDs and sequential compression boots were placed. Following satisfactory attainment of general endotracheal anesthesia, a Dave catheter was placed in the patient's urinary bladder. The abdomen was prepped with DuraPrep solution and sterile drapes were applied. The skin above the umbilicus was infiltrated with 0.5% Marcaine solution. The skin incision was made and deepened through the subcutaneous tissue obtaining hemostasis with the use of electrocautery. The Veress needle was introduced into the peritoneal cavity. Saline drop test was positive. Carbon dioxide pneumoperitoneum was established with the relief set at 13 cm of water. Once we had a satisfactory pneumoperitoneum, a 12 mm suprapubic port was placed after preemptive injection of 0.5% Marcaine solution. With the patient positioned head down and rolled to the left, appropriate site for a 5 mm left lower quadrant port was identified and also infiltrated with 0.5% Marcaine solution. The cecum was grasped and the base of the appendix could be seen; however, the appendix tracked upward and was in a very retrocecal position. We were able to tease out and dissect the base of the appendix. At that point, I elected to staple the base of the appendix using an Endo-DIGNA blue load staple. Then, in a retrograde fashion, using the Harmonic scalpel, we were able to take the appendix down. During the course of dissection, it was necessary to place a fourth port on the right mid abdomen. The appendix did come apart during the course of the dissection, but I was able to grasp the distal portion of the appendix and ultimately delivered that. Each segment of the appendix was placed in a separate Endopouch and then brought out through the 12 mm suprapubic port. The right lower quadrant was then inspected for hemostasis. No bleeding was noted. The right retroperitoneal area and pericolic gutter were irrigated with 1000 mL of crystalloid solution. All fluid was aspirated. The cecum was inspected and the repair felt to be solid. With that in mind, under camera vision, all ports were removed. The wounds were inspected for hemostasis and small bleeding sites were electrocoagulated. The suprapubic and supraumbilical incisions were closed in 2 layers approximating the subcutaneous tissue with 3-0 Polysorb and the skin with subcuticular 4-0 Monocryl. The right mid abdomen and left lower quadrant port were closed with subcuticular 4-0 Monocryl. All incisions were Steri-Stripped and dressed with sterile Tegaderm pads. Sponge, needle, and instrument counts were all correct. Prior to emergence from anesthesia, the Dave catheter was removed. The patient tolerated the procedure well and was taken to recovery room in stable condition. JACKLYN KASPER /[id number]
--- NOTE | 2017-10-29 14:51 | PCM.POSTAN ---
POST ANESTHESIA ASSESSMENT - MENTAL STATUS Mental Status: Alert, Oriented - RESPIRATORY Respiratory Status: Respiratory Rate WNL, Airway Patent, O2 Saturation Stable - CARDIOVASCULAR CV Status: Pulse Rate WNL, Blood Pressure Stable - GASTROINTESTINAL GI Status: No Symptoms - PAIN Pain Score: 0 - POST OP HYDRATION Hydration Status: Adequate & Stable
[2017-10-29] MEDS ORDERED: Dexamethasone 4 MG Tab PO PRN (15:07)
[2017-10-29] MEDS ORDERED: metFORMIN 500 MG Tab.ER PO SCH (15:15)
[2017-10-29] MEDS ORDERED: Morphine 10 MG/ML Syringe IVPUSH PRN (16:24)
[2017-10-29] MEDS ORDERED: Ondansetron 4 MG/2 ML SDV IVPUSH PRN (16:24)
[2017-10-29] MEDS ORDERED: Acetaminophen/HYDROcodone 325-5 MG Tab PO PRN (16:24)
[2017-10-29] MEDS: Lisinopril 5 MG Tab PO SCH (17:48)
[2017-10-29] MEDS: Levothyroxine 125 MCG Tab PO SCH (17:49)
[2017-10-29] MEDS: cefOXitin 1 GM in Premix Bag 1 BAG IV SCH (19:38)
[2017-10-30] MEDS: cefOXitin 1 GM in Premix Bag 1 BAG IV SCH (04:17)
[2017-10-30] MEDS: Levothyroxine 125 MCG Tab PO SCH (06:42)
[2017-10-30] MEDS ORDERED: Rosuvastatin 10 MG Tab PO SCH (09:00)
[2017-10-30] MEDS ORDERED: CLOMIPHENE CITRATE 50 MG PO SCH (09:00)
[2017-10-30] MEDS: Lisinopril 5 MG Tab PO SCH (09:49)
[2017-10-30 10:01] VITALS: BP 108/57
== END 2017-10-30 10:12 | disposition home or self-care (01) ==
LOC: MW.ED 08:03 → MW.SDS 11:02 → MW.ICU 14:14
PROVIDERS: ADMIT Surgery; ATTEND Surgery
DX: K35.80 Unspecified acute appendicitis (principal); M10.9 Gout, unspecified; E78.00 Pure hypercholesterolemia, unspecified; I10 Essential (primary) hypertension; M19.90 Unspecified osteoarthritis, unspecified site; E11.9 Type 2 diabetes mellitus without complications; E03.9 Hypothyroidism, unspecified; E66.9 Obesity, unspecified; Z68.33 Body mass index [BMI] 33.0-33.9, adult; Z88.0 Allergy status to penicillin; Z88.8 Allergy status to other drugs, medicaments and biological substances; Z79.899 Other long term (current) drug therapy; Z79.84 Long term (current) use of oral hypoglycemic drugs; Z98.890 Other specified postprocedural states
CPT/HCPCS: 36415; 44970; 74177; 80053; 81001; 82962; 83690; 85025; 88304; 93005; 96365; 96375; 96376; 99285; A9270; G0378; J0694; J1170; J1200; J1885; J2250; J2405; J3010; J7120; Q9967; 00840; 96361; 96374; 99283; J0690; J2704

== ENCOUNTER 2017-12-17 07:28 | Day surgery (SDC) | payer BC ==
[~2017-12-17 07:28] MED LIST changes: +Bupivacaine 0.5% 10 ML SDV ONE; -Lactated Ringers 1,000 ML IV SCH; -Lidocaine 2% 5 ML SDV ONE; -Propofol 200 MG/20 ML SDV ONE; -Sodium Chloride 0.9% 10 ML Syringe FLUSH PRN; -Sodium Chloride 0.9% 2.5 ML Syringe FLUSH PRN; +ceFAZolin 1 GM Vial ONE
[2017-12-17] MEDS ORDERED: ceFAZolin 2 GM in Premix Bag 1 BAG IV SCH (08:00)
[2017-12-17] MEDS ORDERED: Lactated Ringers 1,000 ML IV SCH ×2 (08:00→09:30)
[2017-12-17] MEDS ORDERED: Propofol 200 MG/20 ML SDV ONE (08:03)
[2017-12-17] MEDS ORDERED: Midazolam 1 MG/ML 2 ML SDV ONE (08:03)
[2017-12-17] MEDS ORDERED: Lidocaine 2% 5 ML SDV ONE (08:03)
[2017-12-17] MEDS ORDERED: fentaNYL 100 MCG/2 ML SDV ONE (08:03)
[2017-12-17] MEDS ORDERED: Glycopyrrolate 0.2 MG/ML SDV ONE (08:04)
[2017-12-17] MEDS ORDERED: Neostigmine Methylsulfate 1 MG/ML 5 ML Syringe ONE (08:04)
[2017-12-17] MEDS ORDERED: Rocuronium 10 MG/ML 10 ML Syringe ONE (08:04)
[2017-12-17] MEDS ORDERED: Ondansetron 4 MG/2 ML SDV ONE (08:04)
[2017-12-17] MEDS ORDERED: Ketorolac 30 MG/ML SDV ONE (08:04)
--- NOTE | 2017-12-17 08:20 | PCM.PREANE ---
Preanesthetic Assessment - Anesthesia/Transfusion/Family Hx Anesthesia History: Prior Anesthesia Without Reaction Transfusion History: No Prior Transfusion(s) - Physical Assessment O2 Sat by Pulse Oximetry: 94 Respiratory Rate: 16 Vital Signs: Last Vital Signs Temp 36.0 C 12/17/17 08:05 Pulse 79 12/17/17 08:05 Resp 16 12/17/17 08:05 BP 138/91 H 12/17/17 08:05 Pulse Ox 94 L 12/17/17 08:05 Height: 1.73 m Weight: 97.069 kg - Lab Values: Laboratory Last Values POC Glucose 92 mg/dL (60-110) 12/17/17 08:11 - Allergies Allergies/Adverse Reactions: Allergies Allergy/AdvReac Type Severity Reaction Status Date / Time gabapentin Allergy Headache Verified 12/12/17 16:16 Penicillins Allergy Cannot Verified 12/12/17 16:16 Remember PreAnesthesia Questionnaire HEENT History: Reports: None Cardiovascular History: Reports: High Cholesterol, Hypertension Respiratory History: Gastrointestinal History: Reports: None Genitourinary History: Reports: None Musculoskeletal History: Reports: Arthritis, Fracture, Gout Neurological History: Reports: Other (See Below) Other Neuro History: hx of degenerative disc disease Psychiatric History: Reports: None Endocrine/Metabolic History: Reports: Diabetes, Type II, Hypothyroidism, Obesity /BMI 30+ Hematologic History: Reports: None Immunologic History: Reports: None Oncologic (Cancer) History: Reports: None Dermatologic History: Reports: None - Infectious Disease History Infectious Disease History: Reports: None - Past Surgical History Head Surgeries/Procedures: Reports: None HEENT Surgical History: Reports: Oral Surgery Other HEENT Surgeries/Procedures: has upper dental implants x4 Cardiovascular Surgical History: Reports: None Respiratory Surgical History: Reports: None GI Surgical History: Reports: Appendectomy (10/29/17), Hernia, Inguinal (right) Male Surgical History: Reports: None Endocrine Surgical History: Reports: None Neurological Surgical History: Reports: None, Lumbar Spine, Spinal Fusion Musculoskeletal Surgical History: Reports: ORIF, Other (See Below) Other Musculoskeletal Surgeries/Procedures:: hx repair of fx ankle and later had hardware removal Oncologic Surgical History: Reports: None Dermatological Surgical History: Reports: None - SUBSTANCE USE Smoking Status *Q: Former Smoker Second Hand Smoke Exposure: No Recreational Drug Use History: No - HOME MEDS Home Medications: Home Meds Dexamethasone 3 tab PO ASDIRECTED PRN 03/09/17 [History] Levothyroxine Sodium [Synthroid] 125 mcg PO DAILY 03/09/17 [History] Sildenafil [Revatio] 20 mg PO ASDIRECTED PRN 03/09/17 [History] Lisinopril 5 mg PO DAILY 03/14/17 [History] Rosuvastatin [Crestor] 10 mg PO DAILY 03/14/17 [History] metFORMIN HCl [Metformin HCl ER] 1,000 mg PO WITHDINNER 10/29/17 [History] Dulaglutide [Trulicity] 1.5 mg SQ WEEKLY 12/12/17 [History] methylTESTOSTERone [Testred] 10 mg PO DAILY 12/12/17 [History] - CURRENT (IN HOUSE) MEDS Current Meds: Current Medications Cefazolin Sodium/Dextrose 2 gm (/ Premix) 50 mls @ 100 mls/hr IV ONETIME HANK Lactated Ringer's (Ringers, Lactated) 1,000 mls @ 125 mls/hr IV ASDIRECTED HANK Last Admin: 12/17/17 08:07 Dose: 125 mls/hr Discontinued Medications Bupivacaine HCl (Sensorcaine-Mpf 0.5%) Confirm Administered Dose 10 ml .ROUTE .STK-MED ONE Stop: 12/17/17 07:26 Cefazolin Sodium (Ancef) Confirm Administered Dose 1 gm .ROUTE .STK-MED ONE Stop: 12/17/17 07:26 Fentanyl (Sublimaze) Confirm Administered Dose 300 mcg .ROUTE .STK-MED ONE Stop: 12/17/17 08:04 Glycopyrrolate (Robinul) Confirm Administered Dose 0.6 mg .ROUTE .STK-MED ONE Stop: 12/17/17 08:05 Ketorolac Tromethamine (Toradol) Confirm Administered Dose 30 mg .ROUTE .STK- MED ONE Stop: 12/17/17 08:05 Lidocaine (Xylocaine-Mpf 2%) Confirm Administered Dose 10 ml .ROUTE .STK-MED ONE Stop: 12/17/17 08:04 Midazolam HCl (Versed 1 Mg/Ml) Confirm Administered Dose 2 mg .ROUTE .STK-MED ONE Stop: 12/17/17 08:04 Neostigmine Methylsulfate (Neostigmine) Confirm Administered Dose 5 mg .ROUTE .STK-MED ONE Stop: 12/17/17 08:05 Ondansetron HCl (Zofran) Confirm Administered Dose 4 mg .ROUTE .STK-MED ONE Stop: 12/17/17 08:05 Propofol (Diprivan 20 Ml) Confirm Administered Dose 400 mg .ROUTE .STK-MED ONE Stop: 12/17/17 08:04 Rocuronium [place] (Zemuron) Confirm Administered Dose 100 mg .ROUTE .STK-MED ONE Stop: 12/17/17 08:05
[2017-12-17] MEDS ORDERED: Ondansetron 4 MG/2 ML SDV IVPUSH PRN (09:21)
[2017-12-17] MEDS ORDERED: Morphine 10 MG/ML Syringe IVPUSH PRN (09:21)
[2017-12-17] MEDS ORDERED: Acetaminophen/HYDROcodone 325-5 MG Tab PO PRN (09:21)
--- NOTE | 2017-12-17 09:29 | PCM.OPNOTE ---
- General Post-Op/Procedure Note Date of Surgery/Procedure: 12/17/17 Operative Procedure(s): Repair incarcerated umbilical hernia with 4.3 cm Ventralex mesh Pre Op Diagnosis: Incarcerated umbilical hernia Post-Op Diagnosis: Same Anesthesia Technique: General ET Tube (ASA II) Primary Surgeon: Carlin Bashir Mechatronics Technician: Phoenix Montes Fluid Replacement, Intraop: 500 EBL in mLs: 10 Condition: Good Free Text/Narrative:: Dictation [id number] CPT CODE 92142/06602
--- NOTE | 2017-12-17 10:02 | PCM.POSTAN ---
POST ANESTHESIA ASSESSMENT - MENTAL STATUS Mental Status: Alert, Oriented - RESPIRATORY Respiratory Status: Respiratory Rate WNL, Airway Patent, O2 Saturation Stable - CARDIOVASCULAR CV Status: Pulse Rate WNL, Blood Pressure Stable - GASTROINTESTINAL GI Status: No Symptoms - PAIN Pain Score: 5 - POST OP HYDRATION Hydration Status: Adequate & Stable - OBSERVATIONS Free Text/Narrative:: no anesthesia problems
[2017-12-17 11:38] VITALS: BP 131/81
--- NOTE | 2017-12-17 16:38 | OR ---
SURGEON: Carlin Bashir M.D. DATE OF PROCEDURE: 12/17/2017 OPERATION PERFORMED: Repair incarcerated umbilical hernia with 4.3 cm Ventralex mesh. PRECIPITATOR SUPERVISOR: Dr. Phoenix Montenegro, PGY-2 ANESTHESIA: General endotracheal [employer] CLASSIFICATION: II. PREOPERATIVE DIAGNOSIS: Incarcerated umbilical hernia. POSTOPERATIVE DIAGNOSIS: Incarcerated umbilical hernia. ESTIMATED BLOOD LOSS: 10 mL. INTRAOPERATIVE FLUID REPLACEMENT: 500 mL of crystalloid. DESCRIPTION OF PROCEDURE: The patient was taken to the operating room and placed on the operating table in the supine position. Time-out was called for appropriate identification of the patient and procedure. Thigh-high TEDs and sequential compression boots had already been placed. Following satisfactory attainment of general endotracheal anesthesia, the abdomen was prepped with DuraPrep solution and sterile drapes were applied. The surgical site had been marked prior to the patient entering the operating room. The skin incision was made and curved circumferentially to the right around the umbilicus. Dissection was carried into the subcutaneous tissue obtaining hemostasis with the use of electrocautery. The fascial defect was identified and circumferentially dissected free reducing the contents. Small bleeding sites were electrocoagulated. A 4.3 cm Ventralex mesh was brought to the operating table and soaked in 1% Ancef solution. This was then placed in an underlay technique and secured with interrupted 0 Ethibond sutures. All sutures were placed under direct vision and held with hemostats until the final suture had been placed. Once the final suture had been placed and all sutures tied, the patient was given a Valsalva maneuver to 50 cm of water. The repair was solid. The wound was then inspected for hemostasis and the wound irrigated with sterile 1% Ancef solution. The fascia was then reapproximated over the mesh without difficulty. Wound was again inspected for hemostasis and no other bleeding sites were identified. The subcutaneous tissue was reapproximated with running 3-0 Vicryl. The skin edges were reapproximated with subcuticular 4-0 Monocryl reinforced with Steri-Strips. Sterile Tegaderm pad was placed as a dressing. Sponge, needle, and instrument counts were all correct. The patient tolerated the procedure well. Following emergence from anesthesia and extubation, the patient was taken to recovery room in stable condition. JACKLYN / MAJO /[id number]
== END 2017-12-17 11:35 | disposition home or self-care (01) ==
LOC: MW.SDS 07:28
PROVIDERS: ATTEND Surgery
DX: K42.0 Umbilical hernia with obstruction, without gangrene (principal); E03.9 Hypothyroidism, unspecified; I10 Essential (primary) hypertension; E78.00 Pure hypercholesterolemia, unspecified; E79.0 Hyperuricemia without signs of inflammatory arthritis and tophaceous disease; E66.9 Obesity, unspecified; R73.03 Prediabetes; Z79.84 Long term (current) use of oral hypoglycemic drugs; Z79.899 Other long term (current) drug therapy; Z68.30 Body mass index [BMI] 30.0-30.9, adult; Z88.0 Allergy status to penicillin; Z88.8 Allergy status to other drugs, medicaments and biological substances
CPT/HCPCS: 49587; 82962; A9270; J0690; J1885; J2250; J2405; J3010; J7120; 00750; C1781; J2704

== ENCOUNTER 2021-05-11 11:32 | Emergency (ER) | payer BC ==
[2021-05-11] MEDS ORDERED: Sodium Chloride 0.9% 1,000 ML IV ONE (12:05)
[2021-05-11] MEDS ORDERED: Meclizine 25 MG Tab PO ONE (12:09)
--- NOTE | 2021-05-11 12:09 | EDM.PDOC ---
ED HPI GENERAL MEDICAL PROBLEM - General Chief Complaint: General Stated Complaint: EXTREMLY DIZZY Time Seen by Provider: 05/11/21 11:36 Source of Information: Reports: Patient History Limitations: Reports: No Limitations - History of Present Illness INITIAL COMMENTS - FREE TEXT/NARRATIVE: 56-year-old male presenting for dizziness. Patient was seen in clinic yesterday for dizziness and was given diazepam by his PMD. His PMD also told him to hold his medication as well. He states that the dizziness still they are not getting better he also developed some nausea vomiting and upset stomach. He also has some shortness of breath. He was satting 88% on room air was placed on 2 L. Patient is a dizziness that is not made better or worse with any events. The dizziness has been constant. Patient has no other neurological deficits or symptoms. - Related Data Allergies Allergy/AdvReac Type Severity Reaction Status Date / Time gabapentin Allergy Headache Verified 05/11/21 11:59 Penicillins Allergy Cannot Verified 05/11/21 11:59 Remember Home Meds: Home Meds Dexamethasone 3 tab PO ASDIRECTED PRN 03/09/17 [History] Levothyroxine Sodium [Synthroid] 125 mcg PO DAILY 03/09/17 [History] Sildenafil [Revatio] 20 mg PO ASDIRECTED PRN 03/09/17 [History] Lisinopril 5 mg PO DAILY 03/14/17 [History] Rosuvastatin [Crestor] 10 mg PO DAILY 03/14/17 [History] metFORMIN HCl [Metformin HCl ER] 1,000 mg PO WITHDINNER 10/29/17 [History] Dulaglutide [Trulicity] 1.5 mg SQ WEEKLY 12/12/17 [History] methylTESTOSTERone [Testred] 10 mg PO DAILY 12/12/17 [History] Past Medical History HEENT History: Reports: None Cardiovascular History: Reports: High Cholesterol, Hypertension Respiratory History: Gastrointestinal History: Reports: None Genitourinary History: Reports: None Musculoskeletal History: Reports: Arthritis, Fracture, Gout Neurological History: Reports: Other (See Below) Other Neuro History: hx of degenerative disc disease Psychiatric History: Reports: None Endocrine/Metabolic History: Reports: Diabetes, Type II, Hypothyroidism, Obesity/BMI 30+ Hematologic History: Reports: None Immunologic History: Reports: None Oncologic (Cancer) History: Reports: None Dermatologic History: Reports: None - Infectious Disease History Infectious Disease History: Reports: None - Past Surgical History Head Surgeries/Procedures: Reports: None HEENT Surgical History: Reports: Oral Surgery Other HEENT Surgeries/Procedures: has upper dental implants x4 Cardiovascular Surgical History: Reports: None Respiratory Surgical History: Reports: None GI Surgical History: Reports: Appendectomy, Hernia, Inguinal Male Surgical History: Reports: None Endocrine Surgical History: Reports: None Neurological Surgical History: Reports: None, Lumbar Spine, Spinal Fusion Musculoskeletal Surgical History: Reports: ORIF, Other (See Below) Other Musculoskeletal Surgeries/Procedures:: hx repair of fx ankle and later had hardware removal Oncologic Surgical History: Reports: None Dermatological Surgical History: Reports: None Social & Family History - Family History Family Medical History: No Pertinent Family History - Tobacco Use Tobacco Use Status *Q: Never Tobacco User - Caffeine Use Caffeine Use: Reports: None - Recreational Drug Use Recreational Drug Use: No ED ROS GENERAL - Review of Systems Review Of Systems: See Below Constitutional: Reports: No Symptoms HEENT: Reports: No Symptoms Respiratory: Reports: Shortness of Breath Cardiovascular: Reports: No Symptoms Endocrine: Reports: No Symptoms GI/Abdominal: Reports: Nausea : Reports: No Symptoms Musculoskeletal: Reports: No Symptoms Skin: Reports: No Symptoms Neurological: Reports: Dizziness Psychiatric: Reports: No Symptoms Hematologic/Lymphatic: Reports: No Symptoms Immunologic: Reports: No Symptoms ED EXAM, GENERAL - Physical Exam Exam: See Below Exam Limited By: No Limitations General Appearance: Alert, WD/WN, No Apparent Distress Eye Exam: Bilateral Eye: EOMI, PERRL Throat/Mouth: Normal Inspection Head: Atraumatic, Normocephalic Neck: Normal Inspection, Supple, Non-Tender Respiratory/Chest: No Respiratory Distress, Lungs Clear, Normal Breath Sounds Cardiovascular: Normal Peripheral Pulses, Regular Rate, Rhythm GI/Abdominal: Normal Bowel Sounds, Soft, Non-Tender Back Exam: Normal Inspection, Full Range of Motion Extremities: Normal Inspection, Normal Range of Motion Neurological: Alert, Oriented, CN II-XII Intact, Normal Cognition, Normal Gait #1 Interpretation EKG Date: 05/11/21 Time: 12:08 Rhythm: NSR Rate (Beats/Min): 89 ST-T: Normal Course - Vital Signs Last Recorded V/S: Last Vital Signs Temp 97 F 05/11/21 12:00 Pulse 67 05/11/21 15:27 Resp 16 05/11/21 15:27 BP 153/95 H 05/11/21 15:27 Pulse Ox 95 05/11/21 15:27 - Orders/Labs/Meds Labs: Laboratory Tests 05/11/21 05/11/21 05/11/21 Range/Units 12:16 12:16 14:19 WBC 6.44 (4.0-11.0) K/uL RBC 5.64 (4.50-5.90) M/uL Hgb 17.0 (13.0-17.0) g/dL Hct 50.4 H (38.0-50.0) % MCV 89.4 (80.0-98.0) fL MCH 30.1 (27.0-32.0) pg MCHC 33.7 (31.0-37.0) g/dL RDW Std Deviation 47.0 (28.0-62.0) fl RDW Coeff of Pina 14 (11.0-15.0) % Plt Count 140 L (150-400) K/uL MPV 9.90 (7.40-12.00) fL Neut % (Auto) 69.3 (48.0-80.0) % Lymph % (Auto) 18.0 (16.0-40.0) % [place] % (Auto) 12.3 (0.0-15.0) % Eos % (Auto) 0.2 (0.0-7.0) % Baso % (Auto) 0.2 (0.0-1.5) % Neut # (Auto) 4.5 (1.4-5.7) K/uL Lymph # (Auto) 1.2 (0.6-2.4) K/uL [place] # (Auto) 0.8 (0.0-0.8) K/uL Eos # (Auto) 0.0 (0.0-0.7) K/uL Baso # (Auto) 0.0 (0.0-0.1) K/uL Nucleated RBC % 0.0 /100WBC Nucleated RBCs # 0 K/uL Sodium 131 L (136-148) mmol/L Potassium 4.2 (3.5-5.1) mmol/L Chloride 96 L (98-107) mmol/L Carbon Dioxide 23.3 (21.0-32.0) mmol/L BUN 22 H (7.0-18.0) mg/dL Creatinine 1.3 (0.8-1.3) mg/dL Est Cr Clr Drug Dosing 62.12 mL/min Estimated GFR (MDRD) 57.3 ml/min Glucose 98 (74-106) mg/dL Calcium 8.2 L (8.5-10.1) mg/dL Phosphorus 3.8 (2.6-4.7) mg/dL Magnesium 2.0 (1.8-2.4) mg/dL Total Bilirubin 0.5 (0.2-1.0) mg/dL AST 38 H (15-37) IU/L ALT 41 (14-63) IU/L Alkaline Phosphatase 76 (46-116) U/L Total Protein 7.1 (6.4-8.2) g/dL Albumin 3.4 (3.4-5.0) g/dL Globulin 3.7 (2.6-4.0) g/dL Albumin/Globulin Ratio 0.9 (0.9-1.6) Lipase 124 (73-393) U/L SARS-CoV-2 RNA (ROHAN) POSITIVE H (NEGATIVE) Meds: Medications Discontinued Medications Generic Name Dose Route Start Last Admin Trade Name Freq PRN Reason Stop Dose Admin Sodium Chloride 1,000 mls @ 999 mls/hr 05/11/21 12:05 05/11/21 12:29 Normal Saline IV 05/11/21 13:05 999 mls/hr .BOLUS ONE Administration Meclizine HCl 25 mg 05/11/21 12:09 05/11/21 12:29 Meclizine 25 Mg Tab PO 05/11/21 12:10 25 mg ONETIME ONE Administration - Re-Assessments/Exams Free Text/Narrative Re-Assessment/Exam: 05/11/21 15:[address] was negative. Patient was also given meclizine without improvement of symptoms. We did a Covid swab is positive. May be related to patient's symptoms. Patient states that he would prefer to go home rather than be admitted if he told me need to do MRI for his dizziness. Patient did need some oxygen as his oxygen level was 90% room air. However we turned the oxygen off and has gone up to 95% if his oxygen level remains more than 95% we will allow patient to be discharged to follow-up as outpatient. Departure - Departure Time of Disposition: 15:39 Disposition: Home, Self-Care 01 Condition: Good Clinical Impression: COVID, Dizziness - Discharge Information *PRESCRIPTION DRUG MONITORING PROGRAM REVIEWED*: Not Applicable *COPY OF PRESCRIPTION DRUG MONITORING REPORT IN PATIENT [place]: Not Applicable Instructions: 10 Things You Can Do to Manage Your COVID-19 Symptoms at Home - [facility] (03/17/2020) Referrals: Phoenix Wong MD [Primary Care Provider] - Forms: ED Department Discharge Additional Instructions: The following information is given to patients seen in the emergency department who are being discharged to home. This information is to outline your options for follow-up care. We provide all patients seen in our emergency department with a follow-up referral. The need for follow-up, as well as the timing and circumstances, are variable depending upon the specifics of your emergency department visit. If you don't have a primary care physician on staff, we will provide you with a referral. We always advise you to contact your personal physician following an emergency department visit to inform them of the circumstance of the visit and for follow-up with them and/or the need for any referrals to a consulting specialist. The emergency department will also refer you to a specialist when appropriate. This referral assures that you have the opportunity for follow-up care with a specialist. All of these measure are taken in an effort to provide you with optimal care, which includes your follow-up. Under all circumstances we always encourage you to contact your private physician who remains a resource for coordinating your care. When calling for follow-up care, please make the office aware that this follow-up is from your recent emergency room visit. If for any reason you are refused follow-up, please contact the [facility] Emergency Department at and asked to speak to the emergency department charge nurse. Please follow up with your primary care physician. If you do not have a primary care physician, see below: [facility] [address] [place] [id number] [facility] [address] [place] [address] You were seen today for dizziness. You have previously seen your primary care physician for this and will recommend to come in. We did a CT head that was within normal limits. We did a Covid test that was positive which could be related to your symptoms. We recommended you have been admitted to continue working up her dizziness however you would prefer to go home we recommend you continue to follow-up with your primary care physician as you may need MRI as outpatient. As far as her oxygen level it return back to normal. If you have any concerning signs or symptoms please return to the ED otherwise continue to follow your primary care physician. Sepsis Event Note (ED) - Focused Exam Vital Signs: Vital Signs Temp Pulse Resp BP Pulse Ox 05/11/21 15:27 67 16 153/95 H 95 05/11/21 14:26 69 16 133/89 95 05/11/21 13:30 79 16 117/86 96 05/11/21 12:00 97 F 87 16 123/79 96 - Assessment/Plan Plan: Patient is a 56-year-old male presents today for unresolved dizziness. Patient also have some shortness of breath and nausea vomiting today. Will obtain labs EKG CT scan and reassess
[2021-05-11 12:51] LABS: CARBON DIOXIDE,CO2 23.3 mmol/L (21.0-32.0); POTASSIUM,K 4.2 mmol/L (3.5-5.1)
--- NOTE | 2021-05-11 13:41 | CR ---
INDICATION: Hypoxia. TECHNIQUE: Chest 1 view. COMPARISON: Chest radiograph 07/25/2016. FINDINGS: No focal consolidation, pleural effusion, or pneumothorax. Normal heart size and pulmonary vascularity. The bones are unremarkable. IMPRESSION: No acute cardiopulmonary findings. Dictated by Courtney Nobles MD @ 05/11/2021 1:41:[address] Courtney Nobles @ May 11 2021 1:41PM
--- NOTE | 2021-05-11 13:56 | CT ---
INDICATION: Dizziness. COMPARISON: None. TECHNIQUE: CT of the head without IV contrast. Coronal and sagittal reconstructions are provided. FINDINGS: No intracranial hemorrhage, mass effect, or evidence of acute infarct. No midline shift. No abnormal extra-axial fluid collections. Normal caliber ventricular system. Orbits and extraocular muscles are symmetric. There are air-fluid levels within the sphenoid sinuses suggesting active sinusitis. Small polyp or mucous retention cyst in the left inferior maxillary sinus. The mastoid air cells are clear. No acute fracture. Soft tissues are unremarkable. IMPRESSION: : 1. No acute intracranial findings. 2. Air fluid levels in the sphenoid sinuses suggesting active sinusitis. Please note that all CT scans at this facility use dose modulation, iterative reconstruction, and/or weight-based dosing when appropriate to reduce radiation dose to as low as reasonably achievable. Dictated by Courtney Nobles MD @ 05/11/2021 1:55:[address] Courtney Nobles @ May 11 2021 1:55PM
[2021-05-11 15:27] VITALS: BP 153/95; PULSE 67
== END 2021-05-11 15:46 | disposition home or self-care (01) ==
LOC: MW.ED 11:32
DX: U07.1 COVID-19 (principal); R42 Dizziness and giddiness; E78.00 Pure hypercholesterolemia, unspecified; I10 Essential (primary) hypertension; E11.9 Type 2 diabetes mellitus without complications; E03.9 Hypothyroidism, unspecified; E66.9 Obesity, unspecified; Z68.34 Body mass index [BMI] 34.0-34.9, adult; Z79.84 Long term (current) use of oral hypoglycemic drugs; Z79.899 Other long term (current) drug therapy; Z88.0 Allergy status to penicillin; Z88.5 Allergy status to narcotic agent
CPT/HCPCS: 70450; 71045; 80053; 83690; 83735; 84100; 85025; 87635; 93005; 99285; A9270; J7030; U0002